=== PATIENT | male | born 1975 | race Two or more races ===

== ENCOUNTER 2020-12-21 10:48 | Emergency (ER) | payer MEDICARE, MEDICAID ==
[~2020-12-21] VITALS: Ht 175.3 cm; Wt 87.5 kg
[2020-12-21] MEDS ORDERED: LIDOCAINE 1% HCL (LOCAL ANESTH.) INJ 20ML MDV IJ ONE (14:00)
[2020-12-21 15:15] VITALS: BP 145/95
[2020-12-21] MEDS ORDERED: BACITRACIN TOP OINT 1 UD PKG TOP ONE (15:15)
== END 2020-12-21 15:29 | disposition home or self-care (01) ==
LOC: ER 10:48
DX: S82.832A Other fracture of upper and lower end of left fibula, initial encounter for closed fracture (principal); S62.521A Displaced fracture of distal phalanx of right thumb, initial encounter for closed fracture; S61.101A Unspecified open wound of right thumb with damage to nail, initial encounter; W18.09XA Striking against other object with subsequent fall, initial encounter; Y93.89 Activity, other specified; Y92.89 Other specified places as the place of occurrence of the external cause; Y99.8 Other external cause status
CPT/HCPCS: 11730; 29130; 73130; 73590; 99284; J2001